=== PATIENT | male | born 1960 | race Caucasian/White ===

== ENCOUNTER 2019-01-31 10:14 | Emergency (ER) | payer BC ==
[2019-01-31 10:22] VITALS: BP 146/84
--- NOTE | 2019-01-31 10:55 | UC ---
Shoulder Pain HPI - HPI Summary HPI Summary: PATIENT HAS HAD BILATERAL SHOULDER PAIN (LEFT WORSE THAN RIGHT) FOR ABOUT 7 YEARS AFTER INSTALLING A DOOR IN HIS HOME. OVER THE PAST ONE YEAR HE STATES THE PAIN HAS GOTTEN PROGRESSIVELY WORSE SO HE DECIDED TO HAVE IT LOOKED AT TODAY. HE DENIES ANY RECENT ACUTE TRAUMA. NO NUMBNESS OR TINGLING IN THE EXTREMITIES. THE PAIN IS TOLERABLE SO HE DOES NOT TAKE ANY MEDICATION FOR PAIN ALTHOUGH HE HAS TRIED OTC IBUPROFEN WHICH SHE STATES IS NOT HELPFUL. HE FEELS THAT HIS LEFT SHOULDER SOMETIMES LOCKS UP. - History of Current Complaint Chief Complaint: UCUpperExtremity Stated Complaint: SHOULDER PAIN Time Seen by Provider: 01/31/19 10:24 Hx Obtained From: Patient Onset/Duration: Gradual Onset, Still Present Severity Initially: Moderate Severity Currently: Moderate Location Of Pain: Is Discrete @ - BILATERAL SHOULDERS Pain Intensity: 10 - NO ACUTE DISTRESS Pain Scale Used: 0-10 Numeric Character: Sharp Aggravating Factor(s): Movement Alleviating Factor(s): Rest Associated Signs And Symptoms: Positive: Negative Related History: Dominant Hand Right - Allergies/Home Medications Allergies/Adverse Reactions: Allergies Allergy/AdvReac Type Severity Reaction Status Date / Time No Known Allergies Allergy Verified 01/31/19 10:22 PMH/Surg Hx/FS Hx/Imm Hx Cardiovascular History: Hypertension - Surgical History Surgical History: Yes Surgery Procedure, Year, and Place: hernia at age 6 - Family History Known Family History: Positive: Non-Contributory - Social History Alcohol Use: Rare Substance Use Type: None Smoking Status (MU): Heavy Every Day Tobacco Smoker Review of Systems All Other Systems Reviewed And Are Negative: Yes Constitutional: Positive: Negative Respiratory: Positive: Negative Cardiovascular: Positive: Negative Gastrointestinal: Positive: Negative Musculoskeletal: Positive: Arthralgia, Decreased ROM Physical Exam Triage Information Reviewed: Yes Appearance: Well-Appearing, No Pain Distress, Well-Nourished Vital Signs: Initial Vital Signs Temp 98.8 F 01/31/19 10:19 Pulse 90 01/31/19 10:19 Resp 17 01/31/19 10:19 BP 146/84 01/31/19 10:19 Pulse Ox 98 01/31/19 10:19 Vital Signs Reviewed: Yes Eyes: Positive: Conjunctiva Clear ENT: Positive: Hearing grossly normal Neck: Positive: Supple Respiratory: Positive: No respiratory distress, No accessory muscle use Cardiovascular: Positive: Pulses Normal Abdomen Description: Positive: Soft Musculoskeletal: Positive: ROM Limited @ - BILATERAL SHOULDER, Other: - EQUIVOCAL ROTATOR CUFF TESTING. Negative: No Edema Neurological: Positive: Alert Psychological: Positive: Age Appropriate Behavior Skin: Negative: Rashes Diagnostics - Radiology BILATERAL SHOULDER XRAYS Radiology Interpretation Completed By: Radiologist Summary of Radiographic Findings: BILATERAL OSTEOARTHRITIS. NO ACUTE OSSEOUS INJURY. Shoulder Course/Dx - Differential Dx/Diagnosis Provider Diagnosis: Osteoarthritis of shoulders, bilateral Discharge - Sign-Out/Discharge Documenting (check all that apply): Patient Departure All imaging exams completed and their final reports reviewed: Yes - Discharge Plan Condition: Stable Disposition: HOME Patient Education Materials: Osteoarthritis (ED), Shoulder Pain (ED) Referrals: Hannah Pinto MD [Medical Doctor] - 1 Week Shaan ROBERTSON,Samuel Collado [Primary Care Provider] - If Needed Additional Instructions: BILATERAL SHOULDER X-RAYS TODAY SHOW OSTEOARTHRITIS. REST, OTC MEDS NEEDED FOR DISCOMFORT. FOLLOW-UP WITH ORTHOPEDICS TO DISCUSS YOUR TREATMENT OPTIONS. YOU MAY BENEFIT FROM [facility]. - Billing Disposition and Condition Condition: STABLE Disposition: Home
== END 2019-01-31 11:51 | disposition home or self-care (01) ==
LOC: UCEAST 10:14
DX: M19.012 Primary osteoarthritis, left shoulder (principal); M19.011 Primary osteoarthritis, right shoulder; I10 Essential (primary) hypertension; F17.200 Nicotine dependence, unspecified, uncomplicated
CPT/HCPCS: 99211; G0463